=== PATIENT | female | born 1990 | race Caucasian/White ===

== ENCOUNTER 2022-06-13 13:16 | Outpatient (CLI) | payer OTHER, SELFPAY | END 2022-06-13 13:17 | disposition home or self-care (01) | LOC: NFLDREF 06-15 03:38 | PROVIDERS: Visit Provider Registered Nurse | DX: R30.9 Painful micturition, unspecified (principal); R11.10 Vomiting, unspecified; R11.0 Nausea; K52.9 Noninfective gastroenteritis and colitis, unspecified | CPT/HCPCS: 87086 ==